=== PATIENT | female | born 1995 | race Caucasian/White ===

== ENCOUNTER 2024-03-12 21:15 | Emergency (ER) | payer OTHER ==
[2024-03-12] MEDS: Amoxicillin/Clavulanate K 875-125 MG Tab PO ONE (21:36)
== END 2024-03-12 21:54 | disposition home or self-care (01) ==
LOC: KA.ED 21:15
DX: S61.452A Open bite of left hand, initial encounter (principal); Z91.018 Allergy to other foods; W55.01XA Bitten by cat, initial encounter
CPT/HCPCS: 99283; A9270